=== PATIENT | female | born 1935 | race Caucasian/White ===

== ENCOUNTER → 2016-04-01 | Outpatient (CLI) | payer OTHER, BC ==
--- NOTE | 2016-04-01 15:56 | MA ---
Screening Digital Mammogram With iCAD Analysis Clinical Indications: Routine screening. Patient has had a previous benign left breast biopsy. Technique: Standard cephalocaudal and mediolateral oblique projections are obtained. This examination is processed by the iCAD computer aided detection system. Comparison: March 2015, March 2014 and March 2013, February 2012, July 2011, February 2011, Dece mb2009, January 2010, January 2009. Breast density: Type B; Scattered fibroglandular densities. Findings: CAD was reviewed. No masses, suspicious calcifications or other signs of malignancy are see n. There has been no significant change in the appearance of either breast. Vascular calcifications a re noted. Impression: Negative mammogram. BI-RADS 1. Recommendation: Routine mammographic screening in one year. [facility] will send a result letter to the patient. Negative mammography should not preclude additional workup of a clinically suspicious finding. The patient's information is entered into a reminder system with a target due date for her next mammo gram.
== END ==
LOC: CIMAGING 11:22
DX: Z12.31 Encounter for screening mammogram for malignant neoplasm of breast (principal)
CPT/HCPCS: G0202

== ENCOUNTER 2016-06-13 11:42 | Observation (INO) | payer OTHER, BC ==
[2016-06-13] MEDS ORDERED: FAMOTIDINE 20 MG TAB PO ONE (11:47)
[2016-06-13] MEDS ORDERED: NS 1,000 ML IV ONE (11:47)
[2016-06-13] MEDS ORDERED: diphenhydrAMINE 25 MG CAP PO ONE ×2 (11:47→12:40)
[2016-06-13] MEDS ORDERED: DIAZEPAM 5 MG TAB PO ONE (11:47)
[2016-06-13] MEDS ORDERED: ASPIRIN EC 325 MG TAB PO ONE ×3 (11:47→15:17)
[2016-06-13] MEDS ORDERED: LIDOCAINE 1% 30 ML SDV ONE (12:10)
[2016-06-13] MEDS ORDERED: HEPARIN 10,000 UNIT/10 ML MDV ONE (12:11)
[2016-06-13] MEDS ORDERED: VERAPAMIL 5 MG/2 ML VIAL ONE (12:11)
[2016-06-13] MEDS ORDERED: MIDAZOLAM 2 MG/2 ML VIAL ONE ×2 (12:11→14:37)
[2016-06-13] MEDS ORDERED: fentaNYL 100 MCG/2 ML INJ ONE ×2 (12:11→15:03)
[2016-06-13] MEDS ORDERED: IOPAMIDOL (ISOVUE 370) 100 ML BTL IV ONE ×3 (12:11→14:49)
--- NOTE | 2016-06-13 12:33 | CPEKG ---
Heart Rate: 63 RR Interval: 952 P-R Interval: 224 QRSD Interval: 90 QT Interval: 416 QTC Interval: 426 P [place]: 0 QRS [place]: -19 T Wave [place]: 85 EKG Severity - ABNORMAL ECG - EKG Impression: SINUS RHYTHM EKG Impression: FIRST DEGREE AV BLOCK EKG Impression: BORDERLINE LEFT AXIS DEVIATION Electronically Signed By: Alfredo Vargas 13-Jun-2016 16:16:29
[2016-06-13] MEDS ORDERED: FAMOTIDINE 20 MG TAB ONE (12:40)
[2016-06-13] MEDS ORDERED: DIAZEPAM 5 MG TAB ONE (12:40)
[2016-06-13 12:56] LABS: % IMMATURE GRANULYOCYTES 0.3 % (0.0-1.1); ABSOLUTE IMMATURE GRANULOCYTES 0.02 10^3/uL (0.00-0.10); ADD DIFF? NO; ADD MORPH? NO; ADD SCAN? NO; ATYPICAL LYMPHOCYTE FLAG 10 (0-99); FRAGMENT RBC FLAG 0 (0-99); HEMATOCRIT 45.5 % (38.0-47.0); HEMOGLOBIN 15.6 g/dL (12.6-16.3); LEFT SHIFT FLG 0 (0-99); LIPEMIA HEMOLYSIS FLAG 90 (0-99); MEAN CELL HEMOGLOBIN 29.8 pg (27.9-34.1); MEAN CELL HEMOGLOBIN CONCENTR. 34.3 g/dL (32.4-36.7); MEAN CELL VOLUME 86.8 fL (81.5-99.8); MEAN PLATELET VOLUME 11.7 fL (8.7-11.7); PLATELET CLUMPS FLAG 0 (0-99); PLATELET COUNT 163 10^3/uL (150-400); RED BLOOD CELL COUNT 5.24 10^6/uL (4.18-5.33); RED CELL DISTRIBUTION WIDTH 13.4 % (11.5-15.2)
[2016-06-13 13:09] LABS: INR 1.03 (0.83-1.16); PROTIME(PATIENT) 13.4 SEC (12.0-15.0)
--- NOTE | 2016-06-13 13:26 | SUROPNOTE ---
[facility] Operative Report - Surgery Date of Procedure: 06/13/16 Indication: This patient is an 81 year old woman, with known coronary disease with history of RCA proximal and mid stenting 08/2010, LAD proximal stenting 2011, and ramus intermedius stenting 07/2011, presenting with three weeks of progressively worsening exertional substernal chest tightness and dyspnea on exertion, now occurring with light exertion. These symptoms are consistent with [place] Cardiovascular class III angina and are similar to her previous angina. No stress testing was performed secondary to the quickly progressive nature of her symptoms. Left heart catheterization indicated secondary to class III angina and known coronary disease. Procedures performed: 1. Right and Left heart catheterization with left ventricular and selective coronary angiography. 2. Balloon angioplasty and intracoronary stent placement x1 in the diagonal branch of the left anterior descending. Description of procedure: Description, risks, benefits and alternatives were discussed in detail. Informed consent was obtained. The patient was brought to the catheterization laboratory where a timeout was performed. The right groin was sterilely prepped and draped. 2% lidocaine utilized for local anesthetic. A 7-Turkmen hemostatic sheath was placed in the right femoral vein utilizing the modified Seldinger technique. A 7-Turkmen PWP catheter was utilized for right heart catheterization. Following right heart catheterization, a 6-Turkmen hemostatic sheath placed right femoral artery utilizing modified technique. Diagnostic coronary angiography performed with 6-Turkmen, Nikki left-4 and Nikki right- 4 catheter. All catheters were passed over a 0.035 guidewire. The obvious culprit lesion is a 90% proximal stenosis in the diagonal branch. Plans were made for percutaneous intervention. Angiomax was administered. A 6- Turkmen EBU 3.75 guide catheter was utilized to engage the left coronary system and a Prowater J wire was placed in the diagonal branch. A 2.25mm x 8mm Emerge balloon was positioned in the proximal diagonal. This was inflated to 11 atmospheres for pre-dilation of the lesion. Intracoronary nitroglycerin and verapamil was administered. A 2.5mm x 12mm Synergy drug-eluting stent was then chosen and placement was attempted in the diagonal branch, however it could not cross the stent struts. Stent was removed and the 2.25mm x 8mm Emerge balloon was reintroduced to dilate the stent struts. While positioned the balloon, the balloon ruptured. The balloon was removed, however during removal of the balloon , the shaft of the balloon catheter fractured. The guide catheter was then removed and the fractured end was contained in the guide catheter. There was no foreign body retained in the patient. Next, a 6-Turkmen EBU 4.0 guide catheter was utilized and engaged the left coronary system. The Prowater J wire was reintroduced and placed in the diagonal branch. A 2.0mm x 12mm Emerge balloon was then utilized, but would not cross the stent struts -- presumably because the wire was not between a different strut. The balloon was removed and the Prowater J was pulled back and repositioned and advanced into the diagonal branch again. The 2.0mm x 12mm Emerge balloon was reintroduced and positioned between in the stent struts, utilizing Clear-Stent angiography to accurately position the balloon. The balloon was inflated to 6 atmospheres for 15 seconds and 8 atmospheres for 7 seconds. The balloon was removed and the 2.5mm x 12mm Synergy drug-eluting was re-introduced, but again the stent would not cross the struts. The 2.0mm x 12mm Emerge balloon was reintroduced and inflated to 16 atmospheres for 13 seconds between the stent struts. The balloon was removed and the 2.5mm x 12mm Synergy drug-eluting balloon was re-introduced but again would not cross. The decision was made to switch to a more low-profile Xience stent. A 2.5mm x 12mm Xience drug-eluting stent was chosen but also would not cross the stent struts. The stent was balloon. Next, a 6-Turkmen Guideliner was placed with the 2.0mm x 12mm Emerge balloon. The balloon was utilized for a total of three inflations to 14 atmospheres between the stent struts and the Guideliner was gradually advanced and positioned between the stent struts, to achieve more distal control. At this point, the balloon was removed and the 2.5mm x 12mm Xience stent was re-introduced and was successfully positioned in the proximal diagonal branch. This was deployed to 13 atmospheres for 37 seconds. Stent balloon was inflated to 16 atmospheres. Guideliner, wire, and stent balloon were then removed. Final orthogonal angiography was performed, which demonstrated 0% residual stenosis and satisfactory result. Pigtail catheter was then utilized for left heart catheterization and left ventricular angiography. Angio-Seal arteriotomy repair was then performed. Venous sheath was removed in the CVC after two hours. Findings: 1. Hemodynamics: Right atrial pressure mean of 6. Right ventricular pressure 29 /5/7 end-diastolic. Pulmonary artery pressure 32/12, mean of 19. Pulmonary capillary wedge pressure mean of 1 with V wave of 13. Aortic pressure 193/76, mean of 114, left ventricular pressure 187/8/18 end-diastolic. There was no significant pull back gradient across the aortic valve. 2. Saturations: Superior vena cava 79.6%, main pulmonary artery 78.2%, Ao 94.4 %. Assumed Brigette cardiac output 5.8 L/min with a cardiac index of 3.6 L/min/m2. 3. Left ventricle: The left ventricle appears normal in size. Left ventricle is normal shape. Segmental wall motion is normal with an ejection fraction of 65 %. There are no filling defects or significant mitral regurgitation. The ascending aorta appears borderline dilated. 4. Coronary angiography: Left main: The left main is a moderately large, long length bifurcating vessel with mild irregularities and no significant stenosis. 5. Left anterior descending: This is a moderate sized vessel, which is quite tortuous. There is a moderate to large bifurcating proximal to mid tortuous diagonal branch. The proximal LAD contains a long stent which also covers the origin of the diagonal branch. There is no significant intrastent restenosis. There is up to 20% stenosis at the ostium of the LAD proximal to the stent. The diagonal branch contains a 90% proximal stenosis, which is significantly worse compared to previous. The remainder of the LAD has luminal irregularities, but no significant stenoses. 6. Ramus intermedius: The ramus is a large vessel. There are stents throughout the proximal portion without evidence of stent restenosis. The ramus intermedius has mild irregularities and no significant stenoses. 7. Circumflex: The circumflex is a very small nondominant vessel consisting mainly of an AV groove branch. This has an 80% focal stenosis which is unchanged from previous. 8. Right coronary: Large dominant vessel with a large posterior descending and a moderate posterolateral branch. There is a proximal and mid stent which is widely patent. There is distal tortuosity. There are irregularities and no significant stenosis. There is no intrastent restenosis. 9. Percutaneous intervention: Guided by angiography, the 90% proximal diagonal lesion was treated with balloon angioplasty and placement of a single drug- eluting stent, with satisfactory result and 0% residual stenosis by final angiography. Of note, this did require several balloon inflations and Guideliner placement in order to cross the stent though the existing stent struts into the diagonal branch. Ultimately, this was successful. Overall Impression: 1. Progression of proximal diagonal branch disease, now 90%, treated with balloon angioplasty and placement of a single drug-eluting stent, with excellent result and 0% residual stenosis. 2. Patent stents in the left anterior descending, ramus intermedius, and right coronary artery. 3. Normal resting right heart hemodynamics. 4. Borderline ascending aorta dilation. 5. Suboptimally controlled hypotension. Plan: 1. Dual anti-platelet therapy with Brilinta and aspirin. 2. Aggressive risk modification and high dose statin therapy. 3. Close clinical follow up. Portions of this report were documented by a medical records library professor. I have reviewed this report and agree with the documentation. Report scribed for Dr. Alan Chand. Report scribed by Senait Ceja.
[2016-06-13 13:38] LABS: ANION GAP 13 mEq/L (8-16); CALCIUM 9.2 mg/dL (8.5-10.4); CARBON DIOXIDE 20 mEq/l (22-31); CHLORIDE 109 mEq/L (97-110); CHOLESTEROL 199 mg/dL (140-220); CHOLESTEROL/HDL RATIO 4.23 RATIO (1.00-4.44); CREATININE 0.7 mg/dL (0.6-1.0); GLOMERULAR FILTRATION RATE > 60; GLUCOSE 94 mg/dL (70-100); HIGH DENSITY LIPOPROTEIN 47 mg/dL (40-85); LDL/HDL RATIO 2.66 RATIO (1.00-3.22); LOW DENSITY LIPOPROTEIN 125 mg/dL (80-100); MAGNESIUM 2.2 mg/dL (1.6-2.3); NON-HIGH DENSITY LIPOPROTEIN 152 mg/dL (90-129); SODIUM 142 mEq/L (134-144); TRIGLYCERIDE 139 mg/dL (35-135); VERY LOW DENSITY LIPOPROTEINS 27 mg/dL (8-25)
[2016-06-13] MEDS ORDERED: NITROGLYCERIN 1,500 MCG/15 ML VIAL MISC ONE (14:21)
[2016-06-13] MEDS ORDERED: BIVALIRUDIN 250 MG/5 ML VIAL IV ONE (14:21)
[2016-06-13] MEDS ORDERED: HYDROCODONE/APAP 5/325 TAB PO PRN (15:17)
[2016-06-13] MEDS ORDERED: NITROGLYCERIN 0.4 MG BTL SL PRN (15:17)
[2016-06-13] MEDS ORDERED: ATROPINE SULFATE 1 MG/10 ML SYR IVP PRN (15:17)
[2016-06-13] MEDS ORDERED: TEMAZEPAM 15 MG CAP PO PRN (15:17)
[2016-06-13] MEDS ORDERED: OXYCODONE/APAP 5/325 TAB PO PRN (15:17)
[2016-06-13] MEDS ORDERED: LORazepam 2 MG/ML INJ IVP PRN (15:17)
[2016-06-13] MEDS ORDERED: ONDANSETRON 4 MG/2 ML VIAL IVP PRN (15:17)
[2016-06-13] MEDS ORDERED: TICAGRELOR 90 MG TAB PO ONE ×2 (15:17→15:19)
[2016-06-13] MEDS ORDERED: D5W 1/2 NS 1,000 ML IV SCH (15:30)
--- NOTE | 2016-06-13 17:20 | CPEKG ---
Heart Rate: 54 RR Interval: 1111 P-R Interval: 264 QRSD Interval: 94 QT Interval: 480 QTC Interval: 455 P [place]: -26 QRS [place]: 23 T Wave [place]: 84 EKG Severity - ABNORMAL ECG - EKG Impression: SINUS RHYTHM EKG Impression: FIRST DEGREE AV BLOCK EKG Impression: LOW VOLTAGE IN FRONTAL LEADS Electronically Signed By: Alfredo Vargas 14-Jun-2016 08:36:17
[2016-06-13] MEDS ORDERED: RAMIPRIL 2.5 MG CAP ONE (17:33)
[2016-06-13] MEDS ORDERED: ALBUTEROL 60 PUFFS/8 GM MDI IH PRN (19:45)
[2016-06-13] MEDS ORDERED: RAMIPRIL 5 MG CAP PO SCH (21:00)
[2016-06-13] MEDS ORDERED: DOXAZOSIN MESYLATE 1 MG TAB PO SCH (21:00)
[2016-06-13] MEDS: IPRATROPIUM HFA INHALER IH SCH (21:33)
[2016-06-13] MEDS: BUDESONIDE/FORMOTEROL 160/4.5 60 PUFFS/MDI IH SCH (21:34)
[2016-06-14] MEDS: TICAGRELOR 90 MG TAB PO SCH ×2 (04:25→08:57)
[2016-06-14 05:06] LABS: % IMMATURE GRANULYOCYTES 0.6 % (0.0-1.1); ABSOLUTE IMMATURE GRANULOCYTES 0.03 10^3/uL (0.00-0.10); ADD DIFF? NO; ADD MORPH? NO; ADD SCAN? NO; ATYPICAL LYMPHOCYTE FLAG 0 (0-99); FRAGMENT RBC FLAG 0 (0-99); HEMATOCRIT 40.4 % (38.0-47.0); HEMOGLOBIN 13.3 g/dL (12.6-16.3); LEFT SHIFT FLG 0 (0-99); LIPEMIA HEMOLYSIS FLAG 80 (0-99); MEAN CELL HEMOGLOBIN 29.4 pg (27.9-34.1); MEAN CELL HEMOGLOBIN CONCENTR. 32.9 g/dL (32.4-36.7); MEAN CELL VOLUME 89.4 fL (81.5-99.8); MEAN PLATELET VOLUME 11.2 fL (8.7-11.7); PLATELET CLUMPS FLAG 10 (0-99); PLATELET COUNT 137 10^3/uL (150-400); RED BLOOD CELL COUNT 4.52 10^6/uL (4.18-5.33); RED CELL DISTRIBUTION WIDTH 13.7 % (11.5-15.2)
[2016-06-14 05:24] LABS: ALBUMIN 3.2 g/dL (3.5-5.0); ANION GAP 9 mEq/L (8-16); ASPARTATE AMINOTRANSFERASE 24 IU/L (14-46); BILIRUBIN,TOTAL 0.6 mg/dL (0.1-1.4); CALCIUM 8.3 mg/dL (8.5-10.4); CARBON DIOXIDE 24 mEq/l (22-31); CHLORIDE 105 mEq/L (97-110); CREATININE 0.8 mg/dL (0.6-1.0); GLOMERULAR FILTRATION RATE > 60; GLUCOSE 110 mg/dL (70-100); LACTATE DEHYDROGENASE 548 IU/L (313-618); MAGNESIUM 2.1 mg/dL (1.6-2.3); POTASSIUM 4.2 mEq/L (3.5-5.2); SODIUM 138 mEq/L (134-144)
[2016-06-14] MEDS: IPRATROPIUM HFA INHALER IH SCH (08:06)
[2016-06-14] MEDS: BUDESONIDE/FORMOTEROL 160/4.5 60 PUFFS/MDI IH SCH (08:06)
[2016-06-14] MEDS ORDERED: ASPIRIN EC 81 MG TAB PO SCH (09:00)
[2016-06-14] MEDS ORDERED: FLUTICASONE NASAL 120 SPRAYS/16 GM MDI EACHNARE SCH (09:00)
[2016-06-14] MEDS ORDERED: LEVOTHYROXINE 50 MCG TAB PO SCH (09:00)
[2016-06-14 11:19] VITALS: BP 164/86; PULSE 67; RESP 19; TEMP 97.9; O2SAT 92
[2016-06-14] MEDS ORDERED: CLOPIDOGREL BISULFATE 75 MG TAB PO ONE (12:03)
[2016-06-15] MEDS ORDERED: CLOPIDOGREL BISULFATE 75 MG TAB PO SCH (09:00)
[2016-06-15] MEDS ORDERED: ROSUVASTATIN CALCIUM 10 MG TAB PO SCH (09:00)
[2016-06-16] MEDS ORDERED: valACYclovir 500 MG TAB PO SCH (09:00)
== END 2016-06-14 14:30 | disposition home or self-care (01) ==
LOC: FCATH 11:42 → F2W 15:17
PROVIDERS: ADMIT Internal Medicine Interventional Cardiology; ATTEND Internal Medicine Interventional Cardiology
DX: I25.118 Atherosclerotic heart disease of native coronary artery with other forms of angina pectoris (principal); Z95.5 Presence of coronary angioplasty implant and graft; R00.2 Palpitations; I10 Essential (primary) hypertension
CPT/HCPCS: 93005; 93460; C1725; C1760; C1769; C1874; C1887; C9600; J0583; J1644; J2250; J2405; J3010; Q9967

== ENCOUNTER → 2016-08-27 | Outpatient (CLI) | payer OTHER, BC | LOC: BHFA 10:15 | PROVIDERS: ATTEND Internal Medicine Interventional Cardiology | DX: I25.10 Atherosclerotic heart disease of native coronary artery without angina pectoris (principal); I10 Essential (primary) hypertension ==

== ENCOUNTER → 2016-09-01 | Day surgery (SDC) | payer OTHER, BC ==
[~2016-09-01] MED LIST: LIDOCAINE 1% 300 MG/30 ML SDV ONE
--- NOTE | 2016-09-01 10:44 | SUROPNOTE ---
JAY Operative Report - Surgery PROCEDURE: LINQ implant INDICATION: Tachycardia symptoms without capture of the arrhythmia PROCEDURE DETAILS: After consent was signed and in chart, patient was prepped and draped in usual sterile fashion. Lidocaine (1%) was used for local anesthetic to the left 2nd and 3rd intercostal spaces. An initial incision was made with #12 blade, and the provided blade was used for proper width and breath. The delivery rail system was positioned, and the LINQ was easily implanted. LINQ SN: [id number] Three sadiq were used to close the access incision. No complications were appreciated. Waveform analysis with excellent data noted. Follow up with cardiology in one week. Patient was in agreement with these plans.
== END | disposition home or self-care (01) ==
LOC: FCATH 09:12
PROVIDERS: ATTEND Internal Medicine Cardiovascular Disease
PROC: 0JH632Z Insertion of Monitoring Device into Chest Subcutaneous Tissue and Fascia, Percutaneous Approach (ICD-10-PCS; principal; 2016-09-01)
DX: R00.0 Tachycardia, unspecified (principal); I25.10 Atherosclerotic heart disease of native coronary artery without angina pectoris; Z95.5 Presence of coronary angioplasty implant and graft; I10 Essential (primary) hypertension
CPT/HCPCS: C1764

== ENCOUNTER → 2017-03-19 | Outpatient (CLI) | payer OTHER, BC | LOC: BHFA 13:00 | PROVIDERS: ATTEND Internal Medicine Interventional Cardiology | DX: I25.10 Atherosclerotic heart disease of native coronary artery without angina pectoris (principal); I47.1 Supraventricular tachycardia; R53.83 Other fatigue; R06.02 Shortness of breath | CPT/HCPCS: 78452; 93017; A9500 ==

== ENCOUNTER → 2017-04-02 | Outpatient (CLI) | payer OTHER, BC | LOC: CIMAGING 10:57 | PROVIDERS: ATTEND Family Medicine | DX: Z12.31 Encounter for screening mammogram for malignant neoplasm of breast (principal) ==

== ENCOUNTER 2017-05-26 09:17 | Observation (INO) | payer OTHER, BC ==
[2017-05-26] MEDS ORDERED: diphenhydrAMINE 25 MG CAP PO ONE (09:23)
[2017-05-26] MEDS ORDERED: NS 1,000 ML IV ONE (09:23)
[2017-05-26] MEDS ORDERED: BACITRACIN IRRIGATION/NS 50,000 UNITS/1,000 ML BTL IRR ONE (09:23)
[2017-05-26] MEDS ORDERED: ceFAZolin 2 GM/SWFI 2 GM/20 ML SYR IVP ONE ×2 (09:23→10:30)
[2017-05-26] MEDS ORDERED: DIAZEPAM 5 MG TAB PO ONE (09:23)
[2017-05-26] MEDS ORDERED: LIDOCAINE 1% 300 MG/30 ML SDV ONE (09:57)
--- NOTE | 2017-05-26 09:57 | CPEKG ---
Heart Rate: 62 RR Interval: 968 P-R Interval: 212 QRSD Interval: 90 QT Interval: 416 QTC Interval: 423 P [place]: -13 QRS [place]: -33 T Wave [place]: 109 EKG Severity - BORDERLINE ECG - EKG Impression: SINUS RHYTHM EKG Impression: LEFT AXIS DEVIATION EKG Impression: BORDERLINE R WAVE PROGRESSION, ANTERIOR LEADS Electronically Signed By: Rj Watts 26-May-2017 18:02:44
[2017-05-26] MEDS ORDERED: MIDAZOLAM 2 MG/2 ML VIAL ONE (09:58)
[2017-05-26] MEDS ORDERED: IOPAMIDOL (ISOVUE-300) 100 ML BTL ONE (09:58)
[2017-05-26] MEDS ORDERED: fentaNYL 100 MCG/2 ML INJ ONE (09:58)
[2017-05-26] MEDS ORDERED: BUPIVACAINE 0.5% 10 ML SDV ONE (09:58)
[2017-05-26 10:15] LABS: PLATELET COUNT 144 10^3/uL (150-400)
--- NOTE | 2017-05-26 10:17 | PDPROPOC ---
Sedation Plan of Care Sedation Plan of Care: vital signs stable, mental status noted, patient educated of risks, benefits, alternatives, patient can tolerate sedation ASA Classification: ASA 2 Planned drugs: fentanyl, midazolam Mallampati Score: Class 1 Mallampati Reference Image: Patient passed 3-3-2 rule?: Yes
--- NOTE | 2017-05-26 10:18 | PDGENHP ---
History & Physical Chief Complaint: symptomatic bradycardia Relevant Physical Exam: s1s2 rrr cta ao3 Cardiorespiratory Assessment: symptomatic bradycardia for pacemaker
[2017-05-26 10:26] LABS: PROTIME(PATIENT) 13.4 SEC (12.0-15.0)
[2017-05-26] MEDS ORDERED: ALBUTEROL 60 PUFFS/8 GM MDI IH PRN (12:02)
--- NOTE | 2017-05-26 12:54 | CPEKG ---
Heart Rate: 74 RR Interval: 811 P-R Interval: 282 QRSD Interval: 94 QT Interval: 428 QTC Interval: 475 QRS [place]: -27 T Wave [place]: 133 EKG Severity - ABNORMAL ECG - EKG Impression: ATRIAL-PACED RHYTHM EKG Impression: BORDERLINE LEFT AXIS DEVIATION EKG Impression: NONSPECIFIC REPOL ABNORMALITY, DIFFUSE LEADS Electronically Signed By: Rj Watts 26-May-2017 18:02:38
--- NOTE | 2017-05-26 13:53 | EPPROC ---
Electrophysiology Procedure Note: PROCEDURE PERFORMED: 1. Implantation of an A/V Pacemaker 2. Subclavian vein angiography 3. Fluoroscopy INDICATION: Bradycardia PROCEDURE NOTE: Patient presented to the cardiac catheterization laboratory in a fasting, post absorptive state . EP RN administered sedation. The left infraclavicular area was prepped and draped in the usual sterile fashion. Lidocaine plus bupivacaine was used for local anesthesia. Left subclavian venography was performed by injection of iodinated contrast into the left antecubital vein. This was done to assure patency of the vein and also to assess for any anatomical aberrations. Using a combination of blunt and sharp dissection and electrocautery, the dissection was carried down to the prepectoral fascia. A pocket was made in this anatomical plane. All bleeding was controlled with electrocautery. The pocket was packed with gauze soaked in antibiotic solution. Fluoroscopy was utilized during the entire procedure for venous access and placement of the leads. Using a direct stick technique the left extrathoracic axillary vein was accessed with 2 sticks using the modified Seldinger technique. Placement of the guidewires into the venous system was confirmed by low-pressure blood return and also by visualizing the guidewires advancing into the inferior vena cava. A purse string suture was applied around the guidewires. Two #7 Tamazight sheaths were advanced under fluoroscopic guidance over the guidewire. An active fixation ventricular lead was advanced into the right ventricular apex and screwed in place. An active fixation atrial lead was advanced into the right atrial appendage and screwed in place. The peel away sheaths were removed. Pacing thresholds, sensing parameters and lead impedances were measured. There was no diaphragmatic stimulation at maximum output. The leads were sutured to the prepectoral fascia with 3 nonabsorbable sutures each. The pocket was again inspected for any bleeding. The leads were attached to the pacemaker securely. The pacemaker was inserted into the pocket and secured in place with a nonabsorbable suture. Fluoroscopy was performed in PHILLIPS and CLOVIS planes to verify right-sided placement of the leads. Also fluoroscopy of the pacemaker pocket was performed. The pacemaker pocket was closed in 3 layers with absorbable monocryl sutures and sadiq. Appropriate dressing was applied. The patient left the cardiac catheterization laboratory in stable condition. Serial Numbers: 1. Device: [facility] Assurity MRI 2272 [id number] 2. Atrial Lead: SJM Tendril [id number] 3. Ventricular Lead: SJM Tendril [id number] Stimulation Thresholds & Impedance Measurements: 1. Atrial Lead 1V 0.5 ms P4.4 mV 820 ohm 2. Ventricular Lead 0.5 V 0.5 ms R 6.8 mV 645 ohm Curtis Pacing Parameters 1. Pacing mode: DDDR 2. Lower rate: 70ppm 3. Upper tracking rate: 130 ppm 4. Upper sensor rate: 130 ppm Patient Problems: Problems Problem Status Onset Bradycardia Acute Chest pain Acute Colitis Acute Diarrhea Acute Bloody stools Acute Abdominal pain Acute
[2017-05-26] MEDS ORDERED: ACETAMINOPHEN 500 MG TAB PO PRN (19:25)
[2017-05-26] MEDS ORDERED: ESTROGENS,CONJUGATED 0.3 MG TAB PO SCH (21:00)
[2017-05-26] MEDS ORDERED: RAMIPRIL 5 MG CAP PO SCH (21:00)
[2017-05-26] MEDS ORDERED: ASPIRIN 325 MG TAB PO SCH (21:00)
[2017-05-26] MEDS ORDERED: CYANO/VITAMIN B12 1000 MCG TAB PO SCH (21:00)
[2017-05-26] MEDS ORDERED: DOXAZOSIN MESYLATE 1 MG TAB PO SCH (21:00)
[2017-05-26] MEDS: BUDESONIDE/FORMOTEROL 160/4.5 60 PUFFS/MDI IH SCH (21:01)
[2017-05-26] MEDS: IPRATROPIUM HFA INHALER IH SCH (21:01)
[2017-05-26 23:36] VITALS: TEMP 98.4
[2017-05-27 05:09] LABS: PLATELET COUNT 138 10^3/uL (150-400)
[2017-05-27 05:18] VITALS: PULSE 73; O2SAT 93
[2017-05-27] MEDS ORDERED: LEVOTHYROXINE 50 MCG TAB PO SCH (06:00)
[2017-05-27 07:46] VITALS: BP 147/89; RESP 18
--- NOTE | 2017-05-27 08:59 | CPEKG ---
Heart Rate: 73 RR Interval: 822 P-R Interval: 148 QRSD Interval: 104 QT Interval: 392 QTC Interval: 432 P [place]: 0 QRS [place]: 15 T Wave [place]: 78 EKG Severity - ABNORMAL ECG - EKG Impression: ATRIAL-PACED COMPLEXES Electronically Signed By: Rj Watts 27-May-2017 10:44:30
[2017-05-27] MEDS ORDERED: CHOLECALCIFEROL VIT D3 1,000 UNITS TAB PO SCH (09:00)
[2017-05-27] MEDS ORDERED: FLUTICASONE NASAL 120 SPRAYS/16 GM MDI NS SCH (09:00)
[2017-05-27] MEDS ORDERED: MULTIVITAMINS 1 EACH TAB PO SCH (09:00)
[2017-05-27] MEDS: IPRATROPIUM HFA INHALER IH SCH (09:35)
[2017-05-27] MEDS: BUDESONIDE/FORMOTEROL 160/4.5 60 PUFFS/MDI IH SCH (09:35)
--- NOTE | 2017-05-27 10:30 | ASMTCASEMG ---
Living Arrangements What is your living Answers: Alone arrangement? Who do you live with? Type Of Residence What kind of residence do Answers: House you live in? Discharge Plan Comments Coordination Status Comments Notes: Pt is a 82 y/o female admitted for a SP pacemaker. Pt will most likely d/c without any needs. No therapies ordered at this time. CM available for changes. Plan: Independent Date Signed: 05/27/2017 10:29 AM Electronically Signed By:ERNESTINE Heredia
--- NOTE | 2017-05-27 12:13 | GDS ---
[f rep st] DISCHARGE SUMMARY ADMISSION DIAGNOSES: 1. Planned implantation of dual-chamber AV pacemaker. 2. Bradycardia. 3. Coronary artery disease. 4. Hyperlipidemia. DISCHARGE DIAGNOSES: 1. Status post successful implantation of AV [employer] pacemaker with no complications. 2. Bradycardia. 3. Coronary artery disease with known stents. 4. Hyperlipidemia. HOSPITAL COURSE: The patient was seen and evaluated by Dr. Watts in clinic due to bradycardic episodes . It was determined that there was no relation to medications causing the bradycardia. Recommendati on was for placement of a permanent AV pacemaker. She was in agreement with this plan and was taken to the EP lab by Dr. Rj Watts, where he was able to successfully place the pacemaker with no compli cations. She then was taken to PCU for overnight observation where she has done well. She did have an episode of pacemaker-mediated tachycardia which Robert Pack, [employer] rep, did make setting paulson ges this morning to avoid further episodes of tachycardia. She has been up in the room ambulating with no dizziness, lightheadedness, or shortness of breath. H er left pictorial incision is intact with no bleeding, induration. She does have mild tenderness to the area with a small area of ecchymosis around the incision area. She has had no bleeding. Dressin g is intact with no saturation. At this time, she is stable for discharge. ALLERGIES: She is allergic to latex and meperidine hydrochlorothiazide. MEDICATIONS: She will go home on Altace 5 mg at bedtime, Premarin 0.3 mg orally at bedtime, Cardura 1 mg at bedtime, vitamin B12 1000 mcg at bedtime, Atrovent 2 puffs inhaled twice daily, multivitamin once daily, Symbicort 160/4.5 one puff inhaled twice daily, albuterol 2 puffs inhaled every 4 hours a s needed for shortness of breath, vitamin D3 1000 units daily, nasal spray 2 sprays daily e ach nostril, herbal supplements 1 daily, vitamin C 500 mg daily, Synthroid 50 mcg daily, Valtrex 500 mg Thursday at 0900 and 2100, aspirin 325 mg at bedtime. PHYSICAL EXAMINATION: VITAL SIGNS: On day of discharge: Blood pressure 147/89, pulse 73 and regula r. Paced rhythm. Oxygen saturation 93%. HEART: Rate regular. No murmurs, rubs, gallops. LUNGS: Sounds are clear to auscultation. No wheezes, rales, or rhonchi. EXTREMITIES: No peripheral edema with pulses 2+ bilaterally. CHEST: Left pectoral incision site is intact with no bleeding, induration. She does have a small ar ea of ecchymosis. There is no dressing saturation. CHEMISTRY: White blood count 7.37, hemoglobin 14.7, hematocrit 43.2, platelets 138. Sodium 143, pot assium 4.3, BUN 14, creatinine 0.7, glucose 99. Lipids pending at this time. PROCEDURES: On 05/26/2017 electrophysiology procedure: 1. Implantation of AV pacemaker. 2. Subclavian vein angiography. 3. Fluoroscopy. INDICATION: Bradycardia. DEVICE: [employer] Assurity MRI 2272, serial #[id number]. DESCRIPTION: 1. Atrial lead: [employer] tendril STS [id number], serial number [id number]. 2. Ventricular lead: [facility] [employer] Medical tendril STS [id number], serial number [id number]. Curtis pacing parameters: 1. Pacing mode DDDR. 2. Lower rate 70 beats per minute. 3. Upper tracking rate 130 beats per minute. 4. Upper sensor rate 130 beats per minute. DISCHARGE PLAN: She will follow up in clinic in 1 week for a pacemaker and wound check. She underst ands to leave the dressing on for the full week. No showering for the next week. Okay to sit in a t ub of water. Left arm precautions were reviewed verbally and written instructions are provided. She understands not to use her left arm above shoulder level. No heavy lifting, pushing, pulling gre ater than 10 pounds with the left arm. Should she have concerns or questions, she is asked to call [facility]. CONDITION ON DISCHARGE: At this time, she currently is stable for discharge. /[id number]/MODL
[2017-06-01] MEDS ORDERED: valACYclovir 500 MG TAB PO SCH (09:00)
== END 2017-05-27 12:20 | disposition home or self-care (01) ==
LOC: FCATH 09:17 → F2W 12:30
PROVIDERS: ADMIT Internal Medicine Cardiovascular Disease; ATTEND Internal Medicine Cardiovascular Disease
PROC: 02H63JZ Insertion of Pacemaker Lead into Right Atrium, Percutaneous Approach (ICD-10-PCS; principal; 2017-05-26)
PROC: 0JH606Z Insertion of Pacemaker, Dual Chamber into Chest Subcutaneous Tissue and Fascia, Open Approach (ICD-10-PCS; principal; 2017-05-26)
PROC: B2161ZZ Fluoroscopy of Right and Left Heart using Low Osmolar Contrast (ICD-10-PCS; principal; 2017-05-26)
PROC: B5171ZZ Fluoroscopy of Left Subclavian Vein using Low Osmolar Contrast (ICD-10-PCS; principal; 2017-05-26)
PROC: 02HK3JZ Insertion of Pacemaker Lead into Right Ventricle, Percutaneous Approach (ICD-10-PCS; principal; 2017-05-26)
DX: I47.1 Supraventricular tachycardia (principal); I25.10 Atherosclerotic heart disease of native coronary artery without angina pectoris; E78.5 Hyperlipidemia, unspecified; Z95.5 Presence of coronary angioplasty implant and graft
CPT/HCPCS: 33208; 71045; 71046; 93005; C1785; C1898; J0690; J2250; J3010; Q9967

== ENCOUNTER → 2018-04-05 | Outpatient (CLI) | payer OTHER, BC | LOC: CIMAGING 14:18 | PROVIDERS: ATTEND Family Medicine | DX: Z12.31 Encounter for screening mammogram for malignant neoplasm of breast (principal) ==

== ENCOUNTER → 2018-05-13 | Outpatient (CLI) | payer OTHER, BC | LOC: BHFA 09:30 | PROVIDERS: ATTEND Internal Medicine Cardiovascular Disease | DX: R07.9 Chest pain, unspecified (principal); I25.10 Atherosclerotic heart disease of native coronary artery without angina pectoris | CPT/HCPCS: 78452; 93017; A9500; J2785 ==